=== PATIENT | female | born 1960 | race Caucasian/White ===

== ENCOUNTER 2016-08-26 16:33 | Observation (INO) | payer MEDICAID ==
[2016-08-26] MEDS ORDERED: ROCURONIUM BROMIDE 50 MG/5 ML VIAL IV ONE (17:02)
[2016-08-26] MEDS ORDERED: ONDANSETRON HCL 4 MG/2 ML VIAL ONE (17:02)
[2016-08-26] MEDS ORDERED: SUCCINYLCHOLINE CHLORIDE 200 MG/10 ML VIAL ONE (17:02)
[2016-08-26] MEDS ORDERED: DEXAMETHASONE 10 MG/ML VIAL ONE (17:02)
[2016-08-26] MEDS ORDERED: EPHEDrine SULFATE 50 MG/ML VIAL ONE (17:08)
[2016-08-26] MEDS: NORMAL SALINE 1,000 ML IV SCH ×2 (17:15→18:40)
[2016-08-26] MEDS ORDERED: FAMOTIDINE IN SALINE, ISO-OSM 20 MG/50 ML PIGGYBACK IV STA (17:22)
[2016-08-26] MEDS ORDERED: METOCLOPRAMIDE HCL 10 MG/2 ML VIAL IV STA (17:22)
[2016-08-26] MEDS ORDERED: SCOPOLAMINE 1.5 MG PATCH TOPICAL ONE (17:23)
[2016-08-26] MEDS ORDERED: ACETAMINOPHEN 1,000 MG/100 ML VIAL IV STA (17:23)
[2016-08-26 17:26] LABS: INR 1.1; PARTIAL THROMBOPLASTIN TIME 30 sec (24-38)
[2016-08-26] MEDS ORDERED: ACETAMINOPHEN 1,000 MG/100 ML VIAL IV ONE (17:33)
[2016-08-26] MEDS ORDERED: METOCLOPRAMIDE HCL 10 MG/2 ML VIAL ONE (17:35)
--- NOTE | 2016-08-26 17:44 | PROCEDURE NOTE: GYN ---
[employer] Procedure - Brief Operative Note Date of procedure: 08/26/16 Pre-Op Diagnosis: Menorrhagia, acute anemia Post-op diagnosis: same Procedure: Fractional D&C Anesthesia Type: Mac Physician: ARAMIS ALVARENGA Estimated Blood Loss: 50 Pathology: sent Sponge and instrument counts: correct Condition: stable Disposition: PACU Narrative: The patient is taken to the operative theater and placed supine upon the operative table. IV sedation is given. She was placed in dorsal lithotomy position using Jamison stirrups. She was prepped and draped in the usual sterile fashion. Bimanual examination is performed and the cervix is visualized. Cervix grasped on the anterior lip with a single-tooth tenaculum. Endocervical curettings are obtained and are submitted to pathology. The uterus sounds to 10 cm. The internal cervical os was then sequentially dilated using Hegar dilators. A #8 suction curette is used to evacuate the uterus of a large amount of tissue and specimen submitted to pathology. Following this thorough sharp curettage is performed until uterine "cry" is noted in all areas, specimen submitted to pathology and marked decline in bleeding is noted. The instruments are removed, the tenaculum site is hemostatic. The patient is placed supine on the operating table and taken to recovery in good condition. There are no complications.
[2016-08-26 18:02] LABS: ABO GROUP TYPE A; ANTIBODY SCREEN NEGATIVE; RH TYPE POSITIVE
[2016-08-26] MEDS ORDERED: METHYLERGONOVINE MALEATE 0.2 MG/ML VIAL ONE (18:14)
[2016-08-26] MEDS: HYDROmorphone HCL 1 MG/ML SYR IV PRN ×3 (18:25→18:47)
[2016-08-26] MEDS ORDERED: ONDANSETRON HCL 4 MG/2 ML VIAL IV PRN ×2 (18:31→19:45)
[2016-08-26] MEDS ORDERED: HYDROmorphone HCL 1 MG/ML SYR ONE (18:34)
[2016-08-26] MEDS ORDERED: NORMAL SALINE 1,000 ML IV SCH (19:45)
[2016-08-26] MEDS ORDERED: NORMAL SALINE 250 ML IV ONE (20:05)
[2016-08-26] MEDS: ACETAMINOPHEN 1,000 MG/100 ML VIAL IV SCH (21:11)
[2016-08-27] MEDS: ACETAMINOPHEN 1,000 MG/100 ML VIAL IV SCH (02:06)
[2016-08-27 05:30] LABS: HEMATOCRIT 33.2 % (36.0-48.0); HEMOGLOBIN 10.9 g/dL (12.0-16.0)
[2016-08-27 06:28] VITALS: BP 101/51; PULSE 70; RESP 14; TEMP 97.9; O2SAT 93
[2016-08-27] MEDS ORDERED: IBUPROFEN 600 MG TABLET PO PRN (07:27)
--- NOTE | 2016-08-27 09:50 | DC SUMMARY: Obstetrical/GYN ---
Discharge Summary: Surg/OB Provider: Date of Admission: 08/26/16 Admitting Provider: ARAMIS IRIZARRY MD Attending Provider: ARAMIS IRIZARRY MD Discharging Provider: ARAMIS IRIZARRY MD Primary Care Provider: Discharge Date: 08/27/16 Hospital Course: Ms. JAIME is a 55 year old female admitted for emergency D&C due to hemorrhaging and symptomatic anemia. Surgery was without complication and resulted in a dramatic decline in her blood loss. She was transfused 2 units of PRBC's and symptoms improved. She is discharged the morning after surgery in good condition. Discharge - Patient/Caregiver Discharge Instructions Activity Level: Pelvic rest Diet: Regular Additional Instructions: Aramis Irizarry M.D. [address] [place] [address] PHONE [phone] FAX [phone] Reviewed 10/2014 Post D&C Instructions 1. Please make an appointment for your first post operative check up to see me one week from the date of surgery. Call the clinic to make this appointment. 2. If needed you will receive a prescription for pain pills upon hospital discharge. I recommend alternating ibuprofen with your prescription pain medication. Use your pills as needed. If strength is inadequate, please contact me. 3. Do not drive a car or operate machinery as long as you are taking narcotic pain medication. 4. It would be best for you to restrict your activities for at least 24 hours. As you feel up to it, you may begin to increase your activity. Use your own judgement. 5. No pelvic activity. No tampons, douching or intercourse until after your post operative check up. 6. Report any persistent vomiting or fever above 100.5 degrees immediately. 7. A small amount of bleeding from the vagina is normal. Contact me if bleeding is excessive. Use mini or maxi pads, no tampons. 8. I can be reached through the hospital charge nurse at ([phone]) or the [facility] [employer] [phone]. If no one answers, please leave your name and number and expect a return phone call in 30 minutes. Aramis Irizarry M.D. 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 Discharge Exam - Latest Vital Signs and I&O Latest Vital Signs/I&O: Vital Signs Temp 36.6 C 08/27/16 06:24 Pulse 70 08/27/16 06:24 Resp 14 08/27/16 09:00 BP 101/51 08/27/16 06:24 Pulse Ox 93 08/27/16 09:00 Intake & Output 08/26/16 08/27/16 08/27/16 17:59 05:59 17:59 Intake Total 750 Output Total 450 Balance 300 Weight 83.915 kg 94 kg Intake: Oral 150 Blood Product 600 Output: Urine 450 Other: Urine Appearance Clear Clear Urine Color Yellow Yellow Bright Red Voiding Method Bedside Commode Toilet # Voids 3 # Bowel Movements 0 - Exam Extremities: Absent: tenderness Abdomen: Present: soft, tenderness (suprapubic) Discharge Summary Data - Medication History Medication History: Home Medications Ibuprofen [Ibuprofen*] 600 mg PO TID PRN 08/07/15 Guaifenesin ER [Mucinex*] 600 mg PO Q12H #20 tablet 08/09/15 Levofloxacin [Levaquin] 500 mg PO DAILY #7 tab 08/09/15 Methylprednisolone [Medrol] 1 dosepack PO DIRECTED #1 dosepack 08/09/15 Atenolol 12.5 mg PO DAILY 08/26/16 Inpatient Medications 08/26/16 19:45 oxyCODONE HCL IR [Oxy Ir] 5 mg PO Q3H PRN 08/27/16 07:27 Ibuprofen [Motrin] 600 mg PO Q6H PRN Procedures and tests throughout hospitalization: Completed Lab Orders 08/26/16 16:43 ABO GROUP [HEM] Stat ANTIBODY SCREEN [HEM] Stat PARTIAL THROMBOPLASTIN TIME [HEM] Stat PROTIME/INR [HEM] Stat RH TYPE [HEM] Stat 08/26/16 16:44 CROSSMATCH IMMEDIATE SPIN [HEM] Stat 08/27/16 05:00 H&H [HGB & HCT PANEL] [HEM] AMDRAW Pending Orders 08/26/16 16:43 Anesthesia Type . Pre-op by anesthesia . Resuscitation Status Routine 08/26/16 16:44 RN Blood Transfusion Orders STAT 08/26/16 18:31 Notify Anesthesia . Titrate Oxygen TITRATE TO >90% 08/26/16 19:45 Admit: Observation Routine Activity: As Tolerated PRN Intake and Output QSHIFT I&O Sequential Compression Device IN BED OR CHAIR Vital Signs ROUTINE VITALS (Q4H) oxyCODONE HCL IR [Oxy Ir] 5 mg PO Q3H PRN 08/26/16 20:00 Transfer to Floor PER PROTOCOL 08/26/16 Dinner Regular [DIET] 08/27/16 07:27 Ibuprofen [Motrin] 600 mg PO Q6H PRN 08/27/16 07:28 Remove Peripheral IV ONCE Labs on day of discharge: Labs from last 24 hours 08/27/16 08/26/16 08/26/16 05:00 16:44 16:44 Hgb 10.9 L Hct 33.2 L PT INR PTT ABO Group Rh Factor Antibody Screen Crossmatch Compatible Compatible 08/26/16 16:43 Hgb Hct PT 14.5 INR 1.1 PTT 30 ABO Group Type a Rh Factor Positive Antibody Screen Negative Crossmatch
== END 2016-08-27 09:50 | disposition home or self-care (01) ==
LOC: SDS 16:33 → IN 19:35
PROVIDERS: ADMIT Obstetrics & Gynecology; ATTEND Obstetrics & Gynecology
DX: N95.0 Postmenopausal bleeding (principal); D62 Acute posthemorrhagic anemia
CPT/HCPCS: 36415; 85014; 85018; 85610; 85730; 86850; 86900; 86901; 86920; G0378; J1100; J1170; J2210; J2405; J2765; J7050; P9040-BL

== ENCOUNTER 2016-09-05 14:30 | Observation (INO) | payer MEDICAID ==
--- NOTE | 2016-09-06 08:20 | PREOPERATIVE H&P ---
History of Present Illness (Gavino Irizarry M.D.; 09/05/2016 7:42 AM) The patient is a 55 year old female for evaluation of menstrual problems. The menstrual problem is characterized as heavy menses (for the past 2 weeks has been exceptionally heavy) and abnormally long menses (has been having prolonged menses since evaluation this past summer, has been bleeding now for 2 months, states she assumed it would get better so did not contact me until it became very heavy, called today and made appointment for this afternoon) and has been occurring for 1 year . The problem has been occurring in an irregular pattern. Last menstrual period: Date: (currently) . Currently : no . The symptoms have been associated with breast engorgement (recently) and abdominal cramps, while the symptoms have not been associated with hot flashes, hirsutism , galactorrhea, night sweats or vaginal discharge . There is a medical history of leiomyoma, while there is no history of diabetes, thyroid disease, uterine/ cervical cancer, endocrine disorder or dysplasia . The patient has been using other (Atenolol for HTN), while she denies the use of oral contraceptives, anticoagulants, aspirin or adrenal steroids . There is no history of use of intrauterine device or hormone replacement therapy . Previous diagnostic tests have included: PAP smear (2013, negative), ultrasound exam (2.8 cm anterior leiomyoma), laboratory tests (normal TSH and CBC last summer, Current HCT 26%) and other (Emergency D&C revealed polyps and endometrial hyperplasia without atypia) . Additional reasons for visit: Preop Visit is described as the following: The patient feels well with no complaints. Surgical procedures include : TVH with BSO. The reason for surgery is leiomyoma, menorrhagia and other ( endometrial hyperplasia). Date of procedure: (09/10/2016). Planned anesthesia: general anesthesia . Previous problems related to surgery includes: vomiting. Cardiac risk factors include: hypertension . Risk factors for post operative thromboembolism includes: age > 50 . In depth conversation with the patient/ guardian concerning the procedure, risks, complications, benefits, alternatives , possible failure and need for further surgery or intervention questions were answered and no guarantees were made. 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 Family History (Gavino Irizarry M.D.; 09/05/2016 7:43 AM) Breast Cancer Maternal Grandmother. Cancer (not otherwise specified) Father. Lung Lymphoid Leukemia, Acute Son. age 11 Thyroid Disease Daughter. Social History (Gavino Irizarry M.D.; 09/05/2016 7:43 AM) Alcohol Use Does not drink alcohol. Tobacco Use Former smoker. Medication History (Gavino Irizarry M.D.; 09/05/2016 1:41 PM) Atenolol (25MG Tablet, 1/2 Oral daily) Active. (Dr Almaraz) Levothyroxine Sodium (25MCG Tablet, 1 Oral daily) Active. Iron (325 (65 Fe)MG Tablet, 1 Oral daily) Active. Medications Reconciled / History (Gavino Irizarry M.D.; 09/05/2016 7:43 AM) Deliveries (Parity) 4014 Delivery Mode vaginal Pregnancies () 4 Past Surgical History (Gavino Irizarry M.D.; 09/05/2016 7:43 AM) CYSTOURETEROSCOPY WITH LITHOTRIPSY USING HOLMIUM LASER (97343)12/2015 Dilation and Curettage of Pxeono3708/26/2016 No post-op complications. Mammoplasty; Reduction Bilateral. age 50 NEPHROSTOMY, PERCUTANEOUS (19953) TRIGGER FINGER RELEASE OF RIGHT HAND (44896) Health Maintenance History (Gavino Irizarry M.D.; 09/05/2016 7:43 AM) Pocxueyyb95/01/2016 Pap Smear05/25/2014 Normal. Review of Systems (Gavino Irizarry M.D.; 09/05/2016 1:42 PM) General Not Present- Night Sweats. Skin Present- Rash. HEENT Not Present- Corrective lenses. Neck Not Present- Neck Stiffness. Respiratory Not Present- Chronic Cough and Shortness of Breath. Breast Not Present- Breast Mass. Cardiovascular Not Present- Chest Pain and Fainting / Blacking Out. Gastrointestinal Not Present- Bloody Stool and Change in Bowel Habits. Female Genitourinary Not Present- Blood in Urine, Dysuria, Frequency, Hematuria , Incontinence, Urgency, Vaginal Discharge, Vaginal itching/burning and Vulvar itching. Musculoskeletal Not Present- Joint Redness. Neurological Not Present- Dizziness and Focal Neurological Symptoms. Endocrine Not Present- Hot flashes. Hematology Not Present- DVT and Enlarged Lymph Nodes. Vitals (Desirae Berman RN; 09/05/2016 1:35 PM) 09/05/2016 1:35 PM Temp.: 98.5F Pulse: 70 (Regular) P.OX: 95% (Room air) BP: 116/80 (Sitting, Left Arm, Standard) Physical Exam (Gavino Irizarry M.D.; 09/05/2016 7:43 AM) General General Appearance-Well Appearing. Build & Nutrition-overweight. Integumentary Integumentary General Characteristics Overall examination of the patient's skin reveals - no rashes. Head and Neck Neck Global Assessment - full range of motion, No lymphadenopathy. Thyroid Gland Characteristics - normal size and consistency and no palpable nodules. Eye Sclera/Conjunctiva - Bilateral-Pale. ENMT Mouth and Throat Oral Cavity/Oropharynx - Oropharynx - no evidence of airway distress observed. Chest and Lung Exam Chest and lung exam reveals -Clear and quiet, even and easy respiratory effort with no use of accessory muscles. Cardiovascular Cardiovascular examination reveals -normal heart sounds, regular rate and rhythm with no murmurs. Abdomen Inspection Inspection of the abdomen reveals - No Hernias. Palpation/Percussion Palpation and Percussion of the abdomen reveal - Non Tender, No hepatosplenomegaly and No Palpable abdominal masses. Other Characteristics - No Costovertebral angle tenderness - Left, No Costovertebral angle tenderness - Right. Female Genitourinary External Genitalia Vulva - Characteristics - Non Tender, No Inflammation. Labia Majora - Characteristics - Bilateral - Normal. Perineum - Intact. Clitoris - Normal. Labia Minora - Characteristics - Left - Normal. Right - Normal. Introitus - Characteristics - Non Tender. Discharge - None. Bartholin's Gland - Bilateral - Normal. Urethra - Characteristics - Normal. Urethral Meatus - Characteristics - Normal. Discharge - None. [place] Gland - Bilateral - Normal. Speculum & Bimanual Vagina - Vaginal Lesions - None. Vaginal Mucosa - [place] and [place]. Cervix - Characteristics - No Motion tenderness. Uterus - Characteristics - Non Tender. Position - Anteverted. Adnexa - Characteristics - Left - Non Tender. Right - Non Tender. Masses - No Adnexal Masses. Bladder - Normal. Rectovaginal Exam - Did not examine. Stump Blower-present for exam . Peripheral Vascular Lower Extremity Palpation - Tenderness - Bilateral - Non Tender. Edema - Bilateral - No edema. Neuropsychiatric Mental status exam performed with findings of-Oriented X3 with appropriate mood and affect. Lymphatic Axillary General Axillary Region: Bilateral - Description - No Localized lymphadenopathy. Supraclavicular Nodes: Bilateral - Supraclavicular Lymph Nodes - No supraclavicular lymphadenopathy. 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 (09/05/2016 1:59 PM) MTDD
[2016-09-10] MEDS ORDERED: FAMOTIDINE IN SALINE, ISO-OSM 20 MG/50 ML PIGGYBACK IV SCH ×2 (09:00→11:29)
[2016-09-10] MEDS: cefOXITIN 1 GM in NORMAL SALINE MINI-BAG+ 100 ML IV ONE ×2 (09:04→09:28)
[2016-09-10] MEDS ORDERED: cefOXITIN 1 GM/10 ML VIAL ONE (09:06)
[2016-09-10] MEDS ORDERED: SCOPOLAMINE 1.5 MG PATCH ONE (09:06)
--- NOTE | 2016-09-10 09:10 | PROCEDURE NOTE: GYN ---
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 General endotracheal anesthesia was induced. She is placed in dorsal lithotomy position using Jamison stirrups. Vagina and perineum are prepped, her bladder is drained, and then stained with indigo carmine dye. The patient is draped in the usual sterile fashion. The cervix is visualized and grasped with a double- tooth tenaculum. The vagina was incised circumferentially around the cervix. Using sharp and blunt dissection the anterior peritoneal reflection was identified and entered into sharply. A long retractor is then entered into this incision and the bladder is elevated. Posterior cul-de-sac was then entered into sharply and a long weighted retractor is entered into this incision. The uterosacral ligaments on both left and right sides are clamped cut and tied in a Brie fashion with 0 Vicryl sutures and tagged. Cardinal ligaments on both left and right sides are then clamped cut and ligated in Brie fashion with 0 Vicryl sutures. Uterine vessels on both left and right sides were then clamped cut and ligated in Brie fashion with 0 Vicryl sutures. The lower section of the broad ligament on both left and right sides are clamped cut and ligated in Brie fashion with 0 Vicryl sutures. Uterus is delivered posteriorly and the utero-ovarian round ligament complex on left right sides are clamped cut and ligated in Brie fashion with 0 Vicryl sutures. The uterus and cervix are removed and submitted to pathology. The left ovary and fallopian tube are mobilized and then the infundibulopelvic ligament is clamped cut and ligated in Brie fashion with 0 Vicryl sutures. The ovary and fallopian tube are submitted to pathology. The right ovary and fallopian tube are mobilized and the right infundibulopelvic ligament was clamped cut and ligated in Brie fashion with 0 Vicryl sutures. The ovary fallopian tube are submitted to pathology. The posterior vaginal cuff was closed with a running interlocking 0 Vicryl suture. After assuring excellent hemostasis of all vascular pedicles the uterosacral ligament tags were attached to the lateral vaginal cuff, the anterior peritoneal reflection and exited the posterior cuff in the midline. The vaginal cuff is closed with multiple figure of eight 0-Vicryl sutures. The uterosacral ligament tags are tied in the midline with excellent support of the vaginal cuff. A Raines catheter is placed to down drain, the patient placed supine on the operating table, awakened by anesthesia and taken to PACU.
[2016-09-10] MEDS ORDERED: FAMOTIDINE IN SALINE, ISO-OSM 50 ML IV ONE (09:17)
[2016-09-10] MEDS ORDERED: ACETAMINOPHEN 1,000 MG/100 ML VIAL IV ONE (09:17)
[2016-09-10] MEDS ORDERED: METOCLOPRAMIDE HCL 10 MG/2 ML VIAL ONE (09:17)
[2016-09-10] MEDS ORDERED: ONDANSETRON HCL 4 MG/2 ML VIAL ONE ×2 (09:18→09:23)
[2016-09-10] MEDS ORDERED: MIDAZOLAM HCL 2 MG/2 ML VIAL ONE (09:18)
[2016-09-10] MEDS ORDERED: FENTANYL 100 MCG/2 ML VIAL ONE (09:20)
[2016-09-10] MEDS ORDERED: MORPHINE SULFATE/PF 10 MG/10 ML VIAL ONE (09:20)
[2016-09-10] MEDS ORDERED: SUCCINYLCHOLINE CHLORIDE 200 MG/10 ML VIAL ONE (09:22)
[2016-09-10] MEDS ORDERED: ROCURONIUM BROMIDE 50 MG/5 ML VIAL IV ONE (09:22)
[2016-09-10] MEDS ORDERED: KETOROLAC TROMETHAMINE 30 MG/ML VIAL ONE (09:23)
[2016-09-10] MEDS ORDERED: DEXAMETHASONE 10 MG/ML VIAL ONE (09:23)
[2016-09-10] MEDS ORDERED: LIDOCAINE HCL 2% 20 ML VIAL ONE (09:24)
[2016-09-10] MEDS ORDERED: SEVOFLURANE 250 ML BTL INHALATION ONE (10:05)
[2016-09-10] MEDS ORDERED: METHYLENE BLUE 10 MG/ML VIAL IV ONE (10:19)
[2016-09-10] MEDS ORDERED: METOCLOPRAMIDE HCL 10 MG/2 ML VIAL IV ONE ×2 (10:41→11:29)
[2016-09-10] MEDS ORDERED: LIDOCAINE HCL 1% 20 ML VIAL SUBCUT ONE ×2 (10:41→11:29)
[2016-09-10] MEDS ORDERED: ONDANSETRON HCL 4 MG/2 ML VIAL IV ONE ×2 (10:41→11:29)
[2016-09-10] MEDS ORDERED: ACETAMINOPHEN 1,000 MG/100 ML VIAL IV SCH ×2 (10:41→11:29)
[2016-09-10] MEDS ORDERED: SCOPOLAMINE 1.5 MG PATCH TD ONE ×3 (10:41→13:01)
[2016-09-10] MEDS ORDERED: MIDAZOLAM HCL 2 MG/2 ML SYR IV ONE ×2 (10:41→11:29)
[2016-09-10] MEDS ORDERED: LACTATED RINGERS 1,000 ML IV SCH ×3 (10:41→11:29)
[2016-09-10] MEDS ORDERED: NALBUPHINE HCL 10 MG/ML AMP IV PRN ×2 (11:29→13:01)
[2016-09-10] MEDS ORDERED: FENTANYL 100 MCG/2 ML VIAL IV PRN (11:29)
[2016-09-10] MEDS ORDERED: DIPHENHYDRAMINE 25 MG CAPSULE PO PRN ×2 (11:29→13:01)
[2016-09-10] MEDS ORDERED: NALOXONE HCL 0.4 MG/ML VIAL IV PRN ×6 (11:29→13:01)
[2016-09-10] MEDS ORDERED: ONDANSETRON HCL 4 MG/2 ML VIAL IV PRN ×2 (11:29→13:01)
[2016-09-10] MEDS ORDERED: DIPHENHYDRAMINE 50 MG/ML VIAL IV PRN ×2 (11:29→13:01)
[2016-09-10] MEDS ORDERED: MORPHINE SULFATE 10 MG/ML SYR IV PRN (11:29)
[2016-09-10] MEDS: HYDROmorphone HCL 1 MG/ML SYR IV PRN ×4 (12:06→12:38)
[2016-09-10] MEDS ORDERED: HYDROmorphone HCL 1 MG/ML SYR ONE ×2 (12:15→12:36)
[2016-09-10] MEDS ORDERED: NORMAL SALINE FLUSH 20 ML ONE (12:16)
[2016-09-10] MEDS ORDERED: SIMETHICONE CHEW 80 MG TABLET PO PRN (13:01)
[2016-09-10] MEDS ORDERED: KETOROLAC TROMETHAMINE 30 MG/ML VIAL IV PRN (13:01)
[2016-09-10] MEDS ORDERED: ZOLPIDEM TARTRATE 5 MG TABLET PO PRN (13:01)
[2016-09-10] MEDS: POTASSIUM CHLORIDE/D5 0.45%NAC 1,000 ML IV SCH ×2 (14:05→23:05)
[2016-09-10] MEDS: DOCUSATE SODIUM 100 MG CAPSULE PO SCH (21:21)
[2016-09-11 05:41] LABS: BASOPHILS 0.1 % (0.0-2.0); HEMATOCRIT 29.2 % (36.0-48.0); HEMOGLOBIN 9.6 g/dL (12.0-16.0); LYMPHOCYTES 8.9 % (20.0-40.0); MEAN CELL VOLUME 90.8 fL (80.0-100.0); MEAN CORPUSCULAR HEMOGLOBIN 29.9 pg (29.0-35.0); MEAN PLATELET VOLUME 8.1 fL (7.4-10.4); MONOCYTES 6.9 % (2.0-10.0); MONOCYTES# 0.8 X 10^3uL (0.2-1.0); NEUTROPHILS 84.1 % (54.0-75.0); NEUTROPHILS# 9.3 X 10^3uL (2.6-6.7); PLATELET COUNT 230 X 10^3uL (130-440); RED BLOOD COUNT 3.22 X 10^6uL (4.20-6.10); RED CELL DISTRIBUTION WIDTH 12.8 % (11.5-14.5); WHITE BLOOD COUNT 11.1 X 10^3uL (3.9-10.7)
[2016-09-11 05:48] LABS: BLOOD UREA NITROGEN 12 mg/dL (7-17); CHLORIDE 107 mmol/L (98-107); CREATININE 0.8 mg/dL (0.5-1.0); EST GLOMERULAR FILTRATION RATE > 60 mL/min; GLUCOSE 128 mg/dL (70-100); POTASSIUM 4.3 mmol/L (3.5-5.1); SODIUM 135 mmol/L (137-145)
[2016-09-11 06:13] VITALS: BP 104/58; PULSE 75; RESP 18; TEMP 97.9; O2SAT 90
[2016-09-11] MEDS ORDERED: LEVOTHYROXINE 25 MCG TABLET PO SCH (06:30)
[2016-09-11] MEDS ORDERED: ATENOLOL 50 MG TAB PO SCH (06:30)
--- NOTE | 2016-09-11 08:29 | DC SUMMARY: Obstetrical/GYN ---
Discharge Summary: Surg/OB Provider: Date of Admission: 09/10/16 Admitting Provider: ARAMIS IRIZARRY MD Attending Provider: ARAMIS IRIZARRY MD Discharging Provider: ARAMIS IRIZARRY MD Primary Care Provider: Discharge Date: 09/11/16 Hospital Course: Ms. JAIME is a 55 year old female admitted for TVH with BSO for endometrial hyperplasia. Surgery was without complication and postoperatively she did well. She is discharged on the first postoperative day in good condition. Discharge - Patient/Caregiver Discharge Instructions Activity Level: Abdominal and pelvic rest Diet: Regular Additional Instructions: Aramis Irizarry M.D. [address], [address] [place] [address] PHONE [phone] FAX [phone] Reviewed 10/2014 Post Hysterectomy and/or Vaginal Repair 1. Please make an appointment for your first post operative check up to see me one week from the date of surgery. Your second post operative appointment should be made six weeks from the date of your surgery. Call the clinic to make these appointments. Do not hesitate to call me, or my nurse, with any questions or problems. 2. Get plenty of rest. You will tire more easily than you might expect. It would be best for you to restrict your activities until after your first post operative visit. As you feel up to it, you may increase your activity. Use your own judgment, listen to your body, and take frequent short rests as you become tired. Your restrictions will probably be lifted after your second post operative visit. 3. You will receive a prescription for pain pills upon hospital discharge. I recommend you alternate these with ibuprofen. If needed, take as directed. Contact me if strength is inadequate. Do not drive a car or operate machinery as long as you are taking narcotic pain medication. 4. No heavy lifting or straining. Do not lift anything more than 20 pounds. 5. You may climb stairs but try to make the trip worthwhile. Do not walk up and down excessively. 6. Take only showers for the first two weeks. Sitz baths may be taken to help relieve perineal discomfort. Baths may be taken after two weeks if desired. 7. You may have vaginal spotting for approximately four to six weeks. There may be an odor or you may pass suture material. Use mini or maxi pads. The bleeding should not be heavier than a normal period. Report any bleeding heavier than a period to me immediately. 8. Bleeding may be heavier after activity. If your bleeding does not slow down after resting, please notify me immediately. 9. No pelvic activity. No tampons, douching or intercourse. 10. If bladder surgery was performed, it may take days or even weeks for your bladder to perform adequately. You may go home with a bladder catheter which will be removed the week after surgery. Do not go longer than four hours without voiding during the day time. 11. If you feel constipated, use Milk of Magnesia at bedtime. 12. Eat a well-balanced diet. You should drink 6-8 glasses of fluid per day. Fresh fruits, green leafy vegetables, bran cereals and whole wheat breads should be eaten to prevent constipation. If necessary, stool softeners may be obtained at the pharmacy without a prescription. Use as directed. 13. Report any vomiting or fever above 100.5 degrees immediately. 14. I can be reached through the hospital nursing station [phone]), Charge Nurse ([phone]) or Hospital Supervisor [employer] ([phone]). Aramis Irizarry M.D. 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 Discharge Exam - Latest Vital Signs and I&O Latest Vital Signs/I&O: Vital Signs Temp 36.6 C 09/11/16 06:12 Pulse 75 09/11/16 06:12 Resp 18 09/11/16 06:12 BP 104/58 09/11/16 06:12 Pulse Ox 90 09/11/16 06:12 Intake & Output 09/10/16 09/11/16 09/11/16 17:59 05:59 17:59 Intake Total 8926 2509 Output Total 250 950 Balance 2525 1559 Weight 86.183 kg Intake: IV 2525 1909 Left Forearm 2525 1909 Oral 250 600 Output: Urine 250 950 Other: Urine Appearance Clear Clear Urine Color Yellow Yellow Uretheral (Raines) Pale Yellow Voiding Method Indwelling Catheter Indwelling Catheter - Exam Lungs: Bilateral: normal Heart Rhythm: Present: regular Extremities: Absent: tenderness Abdomen: Present: soft Bowel sounds: present Discharge Summary Data - Medication History Medication History: Home Medications Atenolol 12.5 mg PO DAILY 08/26/16 Ferrous Gluconate 324 mg PO DAILY #30 tablet 08/27/16 Levothyroxine Sodium 25 mcg PO 09/05/16 Inpatient Medications 09/10/16 13:01 Diphenhydramine [Benadryl Inj] 25 mg IV Q4H PRN Diphenhydramine [Benadryl] 25 mg PO Q4H PRN Ketorolac Tromethamine [Toradol] 30 mg IV Q6H PRN Nalbuphine HCl [Nubain] 2.5 mg IV Q15M PRN Naloxone HCl [Narcan] 0.05 mg IV Q5M PRN Naloxone HCl [Narcan] 0.1 mg IV Q5M PRN Naloxone HCl [Narcan] 0.2 mg IV Q5M PRN Ondansetron HCl [Zofran] 4 mg IV Q6H PRN Potassium Chloride/D5 0.45%Nac [KCl 20 Meq in D5w-1/2 Ns] 1,000 ml IV CONT Simethicone Chew [Mylicon] 80 mg PO Q4H PRN Zolpidem Tartrate [Ambien] 5 mg PO HS PRN oxyCODONE HCL IR [Oxy Ir] 5 mg PO Q3H PRN 09/10/16 21:00 Docusate Sodium [Colace] 100 mg PO BID 09/11/16 06:30 Atenolol [Tenormin] 12.5 mg PO BEFORE BREAKFAST Levothyroxine [Synthroid] 25 mcg PO 0630 Procedures and tests throughout hospitalization: Completed Lab Orders 09/11/16 05:00 BASIC METABOLIC PANEL [CHEM] AMDRAW CBC AUTO DIF, MDIF/RMOR IF IND [HEM] AMDRAW Pending Orders 09/05/16 16:24 Resuscitation Status Routine 09/10/16 09:02 Anesthesia Type . Insert Peripheral IV ONCE NPO After midnight 0000 Pre-op by anesthesia . Sequential Compression Device WHILE IN BED 09/10/16 10:41 Anesthesia Type . Insert Peripheral IV ONCE 09/10/16 11:29 Qing hugger if temp <34 C PRN Did pt have a spinal/epidural? . Maintain IV access post spinal CONTINUOUS Narcan @ bedside x24h after sp .x24hrs Notify Anesthesia . Oxygen by Nasal Cannula TITRATE TO >90% Titrate Oxygen TITRATE TO >90% Warm blankets if temp<36 C PRN 09/10/16 13:01 Admit: Observation Routine Activity: Dangle at Bedside DANGLE 4H AFTER PACU Advance diet as tolerated . Dressing Change PRN Incentive Spirometry Q1H Intake and Output QSHIFT I&O K Pad PRN Notify Physician PRN Straight Cath IF BS>500MLS Teach: Post Hysterectomy &/or . Turn, Cough, and Deep Breathe Q1H Vital Signs ROUTINE VITALS (Q4H) Diphenhydramine [Benadryl Inj] 25 mg IV Q4H PRN Diphenhydramine [Benadryl] 25 mg PO Q4H PRN Ketorolac Tromethamine [Toradol] 30 mg IV Q6H PRN Nalbuphine HCl [Nubain] 2.5 mg IV Q15M PRN Naloxone HCl [Narcan] 0.05 mg IV Q5M PRN Naloxone HCl [Narcan] 0.1 mg IV Q5M PRN Naloxone HCl [Narcan] 0.2 mg IV Q5M PRN Ondansetron HCl [Zofran] 4 mg IV Q6H PRN Potassium Chloride/D5 0.45%Nac [KCl 20 Meq in D5w-1/2 Ns] 1,000 ml IV CONT Simethicone Chew [Mylicon] 80 mg PO Q4H PRN Zolpidem Tartrate [Ambien] 5 mg PO HS PRN oxyCODONE HCL IR [Oxy Ir] 5 mg PO Q3H PRN 09/10/16 20:00 Transfer to Floor PER PROTOCOL 09/10/16 21:00 Docusate Sodium [Colace] 100 mg PO BID 09/10/16 Dinner DIET [Regular] [DIET] 09/10/16 Lunch Clear Liquid [DIET] 09/11/16 06:30 Atenolol [Tenormin] 12.5 mg PO BEFORE BREAKFAST Levothyroxine [Synthroid] 25 mcg PO 0630 09/11/16 09:00 Dressing Change POD #1 May shower with wound uncovere POD #1 09/11/16 11:42 Activity: Ambulate with Assist TID Labs on day of discharge: Labs from last 24 hours 09/11/16 05:00 WBC 11.1 H RBC 3.22 L Hgb 9.6 L Hct 29.2 L MCV 90.8 MCH 29.9 MCHC 33.0 RDW 12.8 Plt Count 230 MPV 8.1 Neutrophils % 84.1 H Lymphocytes % 8.9 L Eosinophils % 0.0 Basophils % 0.1 Neutrophils # 9.3 H Lymphocytes # 1.0 Monocytes 6.9 Monocytes # 0.8 Eosinophils # 0.0 Basophils # 0.0 Sodium 135 L Potassium 4.3 Chloride 107 Carbon Dioxide 25 BUN 12 Creatinine 0.8 GFR Calculation > 60 Glucose 128 H Calcium 8.0 L
[2016-09-11] MEDS: DOCUSATE SODIUM 100 MG CAPSULE PO SCH (09:08)
== END 2016-09-11 08:28 | disposition home or self-care (01) ==
LOC: IN 09-10 07:44 → INTOOBSV 09-10 07:44 → OBSVTOIN 09-10 07:44
PROVIDERS: ADMIT Obstetrics & Gynecology; ATTEND Obstetrics & Gynecology
DX: N92.4 Excessive bleeding in the premenopausal period (principal); N80.0 Endometriosis of uterus; I10 Essential (primary) hypertension
CPT/HCPCS: 36415; 80048; 85025; G0378; G0379; J0694; J1100; J1170; J1885; J2250; J2405; J2765; J3480